=== PATIENT | female | born 1995 | race Hispanic/Latino ===

== ENCOUNTER 2018-07-30 18:40 | Emergency (ER) | payer BC ==
--- NOTE | 2018-07-30 19:24 | ER ---
Nurse's Notes [facility] Name: Alexandria Arita Age: 22 yrs Sex: Female : 1995 Arrival Date: 07/30/2018 Time: 18:43 Bed 27 Private MD: Unknown, Unknown Diagnosis: Chest pain on breathing Presentation: 07/30 18:45 Presenting complaint: Patient states: left upper chest wall pain has been going on for sv about 6 months, denies dizziness, SOB. Transition of care: patient was not received from another setting of care. Onset of symptoms was March 2018. Initial Sepsis Screen: Does the patient meet any 2 criteria? No. Patient's initial sepsis screen is negative. Does the patient have a suspected source of infection? No. Patient's initial sepsis screen is negative. Care prior to arrival: None. 18:45 Method Of Arrival: Ambulatory sv 18:45 Acuity: LEANDRA 2 sv 19:09 Risk Assessment: Do you want to hurt yourself or someone else? Patient reports no mg2 desire to harm self or others. Triage Assessment: 18:50 General: Appears in no apparent distress. comfortable, well developed, Behavior is sv calm, cooperative, appropriate for age. Pain: Complains of pain in anterior aspect of left upper chest Pain currently is 7 out of 10 on a pain scale. Pain began 6 months ago Is intermittent. Neuro: Level of Consciousness is awake, alert, obeys commands, Oriented to person, place, time, situation, Gait is steady. Cardiovascular: Patient's skin is warm and dry. Respiratory: Respiratory effort is even, unlabored, Respiratory pattern is regular, symmetrical. 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 - Social history:: Smoking status: Patient uses tobacco products, vapes, Patient uses alcohol, on a daily basis. "4 tall boys daily". Patient/guardian denies using street drugs, IV drugs, Patient/guardian denies using The patient lives alone. - Ebola Screening: : No symptoms or risks identified at this time. - Family history:: not pertinent. Screenin:07 Abuse screen: Denies threats or abuse. Denies injuries from another. Nutritional mg2 screening: No deficits noted. Tuberculosis screening: No symptoms or risk factors identified. Fall Risk None identified. Assessment: 19:07 General: Appears in no apparent distress. comfortable, Behavior is calm, cooperative. mg2 Pain: Complains of pain in chest Pain does not radiate. Pain currently is 3 out of 10 on a pain scale. Quality of pain is described as pressure, Pain began gradually, 6 months ago Is intermittent. Neuro: Level of Consciousness is awake, alert, obeys commands, Oriented to person, place, time, situation. Cardiovascular: Capillary refill < 3 seconds Patient's skin is warm and dry. Respiratory: Airway is patent Respiratory effort is even, unlabored, Respiratory pattern is regular, symmetrical. GI: No signs and/or symptoms were reported involving the gastrointestinal system. : No signs and/or symptoms were reported regarding the genitourinary system. EENT: No signs and/or symptoms were reported regarding the EENT system. Derm: Skin is intact, is healthy with good turgor, Skin is pink, warm \\T\\ dry. normal. Musculoskeletal: Circulation, motion, and sensation intact. Capillary refill < 3 seconds. Vital Signs: 18:50 BP 150 / 105; Pulse 101; Resp 20; Temp 98.3; Pulse Ox 100% ; Weight 71.67 kg; Height 5 sv ft. 2 in. (157.48 cm); Pain 7/10; 19:39 BP 140 / 78; Pulse 98; Resp 18; Temp 98.5(O); Pulse Ox 100% on R/A; Pain 0/10; mg2 18:50 Body Mass Index 28.90 (71.67 kg, 157.48 cm) sv ED Course: 18:43 Patient arrived in ED. ag5 18:44 Unknown, Unknown is Private Physician. ag5 18:47 Rodríguez Oliveira MD is Attending Physician. ma2 18:49 Triage completed. sv 18:50 Arm band placed on. sv 18:54 Oscar Sommers, MARCELO is Primary Nurse. mg2 19:08 Patient has correct armband on for positive identification. 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 Pulse mg2 ox on. NIBP on. Door closed. Warm blanket given. 19:08 No provider procedures requiring assistance completed. Patient maintains SpO2 mg2 saturation greater than 95% on room air. 19:40 Patient did not have IV access during this emergency room visit. mg2 Administered Medications: No medications were administered Outcome: 19:24 Discharge ordered by . christiano 19:40 Discharged to home ambulatory. mg2 19:40 Condition: stable 19:40 Discharge instructions given to patient, Instructed on discharge instructions, follow up and referral plans. medication usage, Demonstrated understanding of instructions, follow-up care, medications, Prescriptions given X 1. 19:40 Patient left the ED. mg2 Signatures: Nichelle Herman RN RN Rodríguez Valentin MD MD ny2 Oscar Sommers RN RN mg2 Vin Gotti ag5
--- NOTE | 2018-07-30 19:25 | EDPHYS ---
Physician Documentation [facility] Name: Alexandria Arita Age: 22 yrs Sex: Female : 1995 Arrival Date: 07/30/2018 Time: 18:43 Bed 27 Private MD: Unknown, Unknown ED Physician Rodríguez Oliveira HPI: 07/30 19:00 This 22 yrs old Female presents to ER via Ambulatory with complaints of Chest ma2 Pain. 19:00 The patient or guardian reports chest pain that is located primarily in the substernal ma2 area. Associated signs and symptoms: Pertinent negatives: abdominal pain, cough, headache. The chest pain is described as burning. Modifying factors: The symptoms are alleviated by nothing. the symptoms are aggravated by breathing. Severity of pain: At its worst the pain was mild in the emergency department the pain is unchanged. 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 - Social history:: Smoking status: Patient uses tobacco products, vapes, Patient uses alcohol, on a daily basis. "4 tall boys daily". Patient/guardian denies using street drugs, IV drugs, Patient/guardian denies using The patient lives alone. - Ebola Screening: : No symptoms or risks identified at this time. - Family history:: not pertinent. ROS: 19:00 Constitutional: Negative for fever, chills, and weight loss. ma2 19:00 Cardiovascular: Positive for chest pain, Negative for edema, palpitations, paroxysmal nocturnal dyspnea. 19:00 All other systems are negative. Exam: 19:00 Constitutional: This is a well developed, well nourished patient who is awake, alert, ma2 and in no acute distress. ENT: Nares patent. No nasal discharge, no septal abnormalities noted. Tympanic membranes are normal and external auditory canals are clear. Oropharynx with no redness, swelling, or masses, exudates, or evidence of obstruction, uvula midline. Mucous membranes moist. Chest/axilla: Normal chest wall appearance and motion. Nontender with no deformity. No lesions are appreciated. Cardiovascular: Regular rate and rhythm with a normal S1 and S2. No gallops, murmurs, or rubs. Normal PMI, no JVD. No pulse deficits. Respiratory: Lungs have equal breath sounds bilaterally, clear to auscultation and percussion. No rales, rhonchi or wheezes noted. No increased work of breathing, no retractions or nasal flaring. Abdomen/GI: Soft, non-tender, with normal bowel sounds. No distension or tympany. No guarding or rebound. No evidence of tenderness throughout. MS/ Extremity: Pulses equal, no cyanosis. Neurovascular intact. Full, normal range of motion. Neuro: Awake and alert, GCS 15, oriented to person, place, time, and situation. Cranial nerves II-XII grossly intact. Motor strength 5/5 in all extremities. Sensory grossly intact. Cerebellar exam normal. Normal gait. Vital Signs: 18:50 BP 150 / 105; Pulse 101; Resp 20; Temp 98.3; Pulse Ox 100% ; Weight 71.67 kg; Height 5 sv ft. 2 in. (157.48 cm); Pain 7/10; 19:39 BP 140 / 78; Pulse 98; Resp 18; Temp 98.5(O); Pulse Ox 100% on R/A; Pain 0/10; mg2 18:50 Body Mass Index 28.90 (71.67 kg, 157.48 cm) sv MDM: 18:47 Patient medically screened. ma2 19:00 Differential diagnosis: anxiety, chest wall pain, costochondritis, gastroesophageal ma2 reflux disease (GERD). 19:23 Data reviewed: vital signs, nurses notes. Test interpretation: by ED physician or ma2 midlevel provider: ECG, ecg is nsr w rate of 70 no ischemic changes, intervals wnl , none. Counseling: I had a detailed discussion with the patient and/or guardian regarding: the historical points, exam findings, and any diagnostic results supporting the discharge/admit diagnosis, the presence of at least one elevated blood pressure reading (>120/80) during this emergency department visit, the need for outpatient follow up. 07/30 18:48 Order name: EKG; Complete Time: 18:49 sv 07/30 18:47 Order name: EKG - Nurse/Tech; Complete Time: 19:05 ma2 Administered Medications: No medications were administered Disposition: 07/30/18 19:24 Discharged to Home. Impression: Chest pain on breathing. - Condition is Stable. - Discharge Instructions: Chest Wall Pain. - Prescriptions for Tylenol- Codeine #3 300-30 mg Oral Tablet - take 2 tablet by ORAL route every 6 hours As needed; 30 tablet. - Medication Reconciliation Form, Thank You Letter, Antibiotic Education, Prescription Opioid Use form. - Follow up: Private Physician; When: Tomorrow; Reason: Continuance of care. Signatures: Nichelle Herman RN RN Rodríguez Oliveira MD MD ma2 Oscar Sommers RN RN mg2 Corrections: (The following items were deleted from the chart) 19:40 19:24 07/30/2018 19:24 Discharged to Home. Impression: Chest pain on breathing. mg2 Condition is Stable. Forms are Medication Reconciliation Form, Thank You Letter, Antibiotic Education, Prescription Opioid Use. Follow up: Private Physician; When: Tomorrow; Reason: Continuance of care. ma2
--- NOTE | 2018-07-31 07:58 | EKG ---
Test Date: 2018-07-30 Test Time: 19:01:59 [employer]ging [employer] Executive: MG MEASUREMENT RESULTS: Intervals: Rate: 86 OH: 134 QRSD: 86 QT: 368 QTc: 440 [place]: P: 31 OH: 134 QRS: 46 T: 31 INTERPRETIVE STATEMENTS: Normal sinus rhythm Possible Lateral infarct, age undetermined Abnormal ECG No previous ECG available for comparison Electronically Signed On 07-31-18 07:57:00 CDT by Shashi Gooden
== END 2018-07-30 19:40 | disposition home or self-care (01) ==
LOC: ER 18:40
DX: R07.1 Chest pain on breathing (principal); Z72.0 Tobacco use; Z91.030 Bee allergy status
CPT/HCPCS: 93005; 99284

== ENCOUNTER 2018-10-23 20:33 | Emergency (ER) | payer BC ==
[2018-10-23] MEDS ORDERED: IBUPROFEN 400 MG TAB ONE (21:24)
[2018-10-23] MEDS ORDERED: AMOX/K CLAV 875 MG TAB ONE ×2 (21:25→21:30)
[2018-10-23] MEDS ORDERED: predniSONE 20 MG TAB ONE ×2 (21:25→21:30)
[2018-10-23] MEDS ORDERED: IBUPROFEN 200 MG TAB PO ONE ×2 (21:25→21:30)
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
--- NOTE | 2018-10-23 21:28 | EDPHYS ---
Physician Documentation [facility] Name: Alexandria Arita Age: 22 yrs Sex: Female : 1995 Arrival Date: 10/23/2018 Time: 20:35 Bed 2 Private MD: ED Physician Wade Camp HPI: 10/23 21:19 This 22 yrs old Female presents to ER via Ambulatory with complaints of Ear tonia Pain. 21:19 The patient presents with a fullness, hearing loss, pain, tenderness. The complaints tonia affect the left ear. Onset: The symptoms/episode began/occurred 2 day(s) ago. Modifying factors: The symptoms are alleviated by covering ear, the symptoms are aggravated by loud noise. Associated signs and symptoms: The patient has no apparent associated signs or symptoms. Severity of symptoms: At their worst the symptoms were mild moderate in the emergency department the symptoms are unchanged. The patient has not experienced similar symptoms in the past. 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 - Social history:: Smoking status: Patient uses tobacco products, vapes. - Ebola Screening: : No symptoms or risks identified at this time. - Family history:: not pertinent. ROS: 21:19 Constitutional: Negative for fever, chills, and weight loss, Eyes: Negative for injury, tonia pain, redness, and discharge, Neck: Negative for injury, pain, and swelling, Cardiovascular: Negative for chest pain, palpitations, and edema, Respiratory: Negative for shortness of breath, cough, wheezing, and pleuritic chest pain, Abdomen/GI: Negative for abdominal pain, nausea, vomiting, diarrhea, and constipation, Back: Negative for injury and pain, : Negative for injury, bleeding, discharge, and swelling, MS/Extremity: Negative for injury and deformity, Skin: Negative for injury, rash, and discoloration, Neuro: Negative for headache, weakness, numbness, tingling, and seizure. 21:19 ENT: Positive for ear pain. Exam: 21:19 Constitutional: This is a well developed, well nourished patient who is awake, alert, tonia and in no acute distress. Head/Face: Normocephalic, atraumatic. Eyes: Pupils equal round and reactive to light, extra-ocular motions intact. Lids and lashes normal. Conjunctiva and sclera are non-icteric and not injected. Cornea within normal limits. Periorbital areas with no swelling, redness, or edema. Neck: Trachea midline, no thyromegaly or masses palpated, and no cervical lymphadenopathy. Supple, full range of motion without nuchal rigidity, or vertebral point tenderness. No Meningismus. Chest/axilla: Normal chest wall appearance and motion. Nontender with no deformity. No lesions are appreciated. Cardiovascular: Regular rate and rhythm with a normal S1 and S2. No gallops, murmurs, or rubs. Normal PMI, no JVD. No pulse deficits. Respiratory: Lungs have equal breath sounds bilaterally, clear to auscultation and percussion. No rales, rhonchi or wheezes noted. No increased work of breathing, no retractions or nasal flaring. Abdomen/GI: Soft, non-tender, with normal bowel sounds. No distension or tympany. No guarding or rebound. No evidence of tenderness throughout. Back: No spinal tenderness. No costovertebral tenderness. Full range of motion. Skin: Warm, dry with normal turgor. Normal color with no rashes, no lesions, and no evidence of cellulitis. MS/ Extremity: Pulses equal, no cyanosis. Neurovascular intact. Full, normal range of motion. Neuro: Awake and alert, GCS 15, oriented to person, place, time, and situation. Cranial nerves II-XII grossly intact. Motor strength 5/5 in all extremities. Sensory grossly intact. Cerebellar exam normal. Normal gait. Psych: Awake, alert, with orientation to person, place and time. Behavior, mood, and affect are within normal limits. 21:19 ENT: TM's: bulging, dullness, erythema, that is mild, on the left. Vital Signs: 20:43 BP 134 / 77; Pulse 118; Resp 18; Temp 98.2; Pulse Ox 99% on R/A; Weight 72.57 kg (R); ak1 Height 5 ft. 2 in. (157.48 cm); Pain 0/10; 20:43 Body Mass Index 29.26 (72.57 kg, 157.48 cm) ak1 MDM: 21:13 Patient medically screened. [facility] 21:25 Data reviewed: vital signs, nurses notes. [facility] Administered Medications: 21:33 Drug: Augmentin 875 mg Route: PO; 21:49 Follow up: Response: No adverse reaction bb 21:33 Drug: predniSONE 60 mg Route: PO; 21:49 Follow up: Response: No adverse reaction 21:33 Drug: Motrin 600 mg Route: PO; 21:49 Follow up: Response: No adverse reaction Disposition: 10/23/18 21:27 Discharged to Home. Impression: Otitis media, unspecified, left ear. - Condition is Stable. - Discharge Instructions: Barotitis Media, Ear Barotrauma, Otitis Media, Adult, Otitis Media, Adult, [id number], Ear Barotrauma, [id number]. - Prescriptions for Sienna- D 12 Hour 60-120 mg Oral Tablet Sustained Release 12 hr - take 1 tablet by ORAL route every 12 hours As needed; 30 tablet. Ibuprofen 600 mg Oral Tablet - take 1 tablet by ORAL route every 8 hours As needed take with food; 21 tablet. Medrol (Rashard) 4 mg Oral Tablets, Dose Pack - take 1 tablet by ORAL route as directed - follow package instructions; 1 packet. Augmentin 875- 125 mg Oral Tablet - take 1 tablet by ORAL route every 12 hours for 10 days; 20 tablet. - Medication Reconciliation Form, Thank You Letter, Antibiotic Education, Prescription Opioid Use form. - Follow up: Private Physician; When: 2 - 3 days; Reason: Recheck today's complaints, Continuance of care, Re-evaluation by your physician. Follow up: Nichelle Manning MD; When: 2 - 3 days; Reason: Recheck today's complaints, Re-evaluation by your physician. - Problem is new. - Symptoms have improved. Signatures: Wade Camp MD MD cha Ballard, Brenda, RN RN bb Karen Durham, RN RN ak1 Corrections: (The following items were deleted from the chart) 21:50 21:27 10/23/2018 21:27 Discharged to Home. Impression: Otitis media, unspecified, left bb ear. Condition is Stable. Forms are Medication Reconciliation Form, Thank You Letter, Antibiotic Education, Prescription Opioid Use. Follow up: Private Physician; When: 2 - 3 days; Reason: Recheck today's complaints, Continuance of care, Re-evaluation by your physician. Follow up: Nichelle Manning; When: 2 - 3 days; Reason: Recheck today's complaints, Re-evaluation by your physician. Problem is new. Symptoms have improved. tonia
== END 2018-10-23 21:50 | disposition home or self-care (01) ==
LOC: ER 20:33
DX: H66.92 Otitis media, unspecified, left ear (principal); F17.290 Nicotine dependence, other tobacco product, uncomplicated; Z91.018 Allergy to other foods; Z91.030 Bee allergy status
CPT/HCPCS: J7512

== ENCOUNTER 2022-08-11 02:52 | Emergency (ER) | payer BC, SELFPAY ==
--- OUTSIDE RECORDS SUMMARY | 2022-08-11 03:15 | XMS REPORT | Continuity of Care Document ---
:1995 Author Organization [facility] t Address [address] [place] [address] [address] [place] [address] Care Team Providers Name Role Phone PCP, PATIENT DOES NOT HAVE A Primary Care Physician Unavaila ble YONATHAN VALENTINE Attending Clinician Unavailable Problems This patient has no known problems. Allergies, Adverse Reactions, Alerts Allergy Allergy Status Severity Reaction(s) Onset Inactive Treating Comm ents Source Name Type Date Date Clinician NO KNOWN Drug Active [facility] Medications This patient has no known medications. Procedures This patient has no known procedures. Encounters Start End Encounter Admission Attending Care Care Encounter Source Date/Time Date/Time Type Type Clinicians Facility Department ID 2021-09-04 2021-09-04 Emergency X JARETT VALENTINE ERT [id number] 25 [facility] 02:50:00 03:01:00 YONATHAN [facility] Results This patient has no known results.
[2022-08-11] MEDS ORDERED: METOCLOPRAMIDE 10 MG/2mL INJ ONE (04:03)
[2022-08-11] MEDS ORDERED: NA CHLORIDE 0.9% 1,000 ML ONE (04:03)
[2022-08-11] MEDS ORDERED: KETOROLAC 30 MG/ML INJ ONE (04:03)
[2022-08-11 04:25] LABS: Hematocrit 39.7 % (36.0-45.0); Lymphocytes % 39.5 % (15.3-44.8); MCV 89.1 fL (80-100); RBC Red Blood Cell Count 4.45 M/uL (3.86-4.86)
[2022-08-11 04:31] LABS: Urine Bilirubin NEGATIVE (Negative); Urine Blood Negative (Negative); Urine Clarity Clear (Clear); Urine Color Light-Yellow (Yellow); Urine Glucose NEGATIVE (Negative); Urine Protein NEGATIVE (Negative); Urine Urobilinogen Normal (Normal)
[2022-08-11 04:38] LABS: Albumin 3.8 g/dL (3.4-5.0); Bilirubin Total 0.2 mg/dL (0.2-1.0); Protein, Total 8.2 g/dL (6.4-8.2)
--- NOTE | 2022-08-11 06:01 | EDPHYS ---
Physician Documentation [facility] Name: Alexandria Arita Age: 26 yrs Sex: Female : 1995 Arrival Date: 08/11/2022 Time: 02:52 Bed 8 Private MD: ED Physician Jose Martin Garzon HPI: 08/11 05:51 This 26 yrs old Female presents to ER via Ambulatory with complaints of Flank sp4 Pain. 05:51 26-year-old female presents with a a right upper back pain acute onset.. sp4 05:52 Patient states pain started acutely yesterday morning and she had trouble walking today sp4 secondary to pain in the back. Patient denied any vomiting, reported nausea but denied any other symptoms. Pain is constant, moderate in intensity. Historical: - Allergies: 03:07 Bees; aa9 03:07 soy beans; aa9 03:10 Peanut Butter Flavor; aa9 - Home Meds: 03:07 None [Active]; aa9 - PMHx: 03:07 None; aa9 - PSHx: 03:07 None; aa9 - Immunization history:: Client reports receiving the 2nd dose of the Covid vaccine. - Social history:: Smoking status: Reported history of juuling and/or vaping. - Family history:: not pertinent. ROS: 05:52 Constitutional: Negative for fever, chills, and weight loss, Eyes: Negative for injury, sp4 pain, redness, and discharge, ENT: Negative for injury, pain, and discharge, Neck: Negative for injury, pain, and swelling, Cardiovascular: Negative for chest pain, palpitations, and edema, Respiratory: Negative for shortness of breath, cough, wheezing, and pleuritic chest pain, Abdomen/GI: Negative for abdominal pain, nausea, vomiting, diarrhea, and constipation, positive for right flank pain Back: Negative for injury, positive for the right back and flank pain : Negative for injury, bleeding, discharge, and swelling, MS/Extremity: Negative for injury and deformity, Skin: Negative for injury, rash, and discoloration, Neuro: Negative for headache, weakness, numbness, tingling, and seizure, Psych: Negative for depression, anxiety, Allergy/Immunology: Negative for hives, rash, and allergies Endocrine: Negative for neck swelling, polydipsia, polyuria, polyphagia, and weight changes Hematologic/Lymphatic: Negative for swollen nodes, abnormal bleeding, and unusual bruising Exam: 05:52 Constitutional: This is a well developed, well nourished patient who is awake, alert, sp4 and in no acute distress. Head/Face: Normocephalic, atraumatic. Eyes: Pupils equal round and reactive to light, extra-ocular motions intact. Lids and lashes normal. Conjunctiva and sclera are not injected. Cornea within normal limits. Periorbital areas with no swelling, redness, or edema. ENT: Nares patent. No nasal discharge, no septal abnormalities noted. Tympanic membranes are normal and external auditory canals are clear. Oropharynx with no redness, swelling, or masses, exudates, or evidence of obstruction, uvula midline. Mucous membranes moist. Neck: Trachea midline, no thyromegaly or masses palpated, and no cervical lymphadenopathy. Supple, full range of motion without nuchal rigidity, or vertebral point tenderness. Chest/axilla: Normal chest wall appearance and motion. Nontender with no deformity. No lesions are appreciated. Cardiovascular: Regular rate and rhythm with a normal S1 and S2. No gallops, murmurs, or rubs. Normal PMI, no JVD. No pulse deficits. Respiratory: Lungs have equal breath sounds bilaterally, clear to auscultation and percussion. No rales, rhonchi or wheezes noted. No increased work of breathing, no retractions or nasal flaring. Abdomen/GI: Soft, non-tender, with normal bowel sounds. No distension or tympany. No guarding or rebound. No evidence of tenderness throughout. Back: No spinal tenderness. No costovertebral tenderness. Skin: Warm, dry with normal turgor. Normal color with no rashes, no lesions, and no evidence of cellulitis. MS/ Extremity: Pulses equal, no cyanosis. Neurovascular intact. Full, normal range of motion. Neuro: Awake and alert, GCS 15, oriented to person, place, time, and situation. Cranial nerves II-XII grossly intact. Motor strength 5/5 in all extremities. Sensory grossly intact. Psych: Awake, alert, with orientation to person, place and time. Behavior, mood, and affect are within normal limits Vital Signs: 03:06 BP 147 / 89; Pulse 92; Resp 16; Temp 98.3; Pulse Ox 99% ; Weight 90.72 kg; Height 5 ft. aa9 2 in. ; Pain 8/10; 04:10 BP 120 / 52; Pulse 90; Resp 16 S; Pulse Ox 100% ; aa9 03:06 Body Mass Index 36.58 (90.72 kg, 157.48 cm) aa9 03:06 Pain Scale: Adult aa9 MDM: 03:42 Patient medically screened. sp4 05:50 ED course: IMPRESSION: 1. Diffuse bladder wall thickening, could be secondary to sp4 underdistention. Correlate with urinalysis for evidence of cystitis. 2. No evidence of acute appendicitis. 3. 2.2 cm simple appearing right adnexal cyst. No follow-up imaging is recommended. . 05:52 Differential diagnosis: nephrolithiasis, pyelonephritis, UTI, diverticulitis, sp4 pancreatitis. Data reviewed: vital signs, nurses notes, old medical records, lab test result(s), CBC, electrolytes, hepatic panel, urinalysis, radiologic studies, CT scan. Consideration of Admission/Observation Escalation of care including admission/observation considered. ED course: CT abdomen pelvis reveals incidental finding of right adnexal cyst, there is diffuse bladder wall thickening could be secondary to underdistention. No evidence for acute appendicitis. Right and left kidneys are normal. Labs are unremarkable. Including CBC CMP test negative, UA is normal. 08/11 03:42 Order name: CBC with Diff; Complete Time: 05:01 sp4 08/11 03:42 Order name: CMP; Complete Time: 05:01 sp4 08/11 03:42 Order name: Lipase; Complete Time: 05:01 sp4 08/11 03:42 Order name: Test, Urine; Complete Time: 05:01 sp4 08/11 03:42 Order name: Urinalysis w/ reflexes; Complete Time: 05:01 sp4 08/11 03:46 Order name: CT Abd/Pelvis - IV Contrast Only sp4 08/11 03:42 Order name: IV Saline Lock; Complete Time: 04:09 sp4 08/11 03:42 Order name: Labs collected and sent; Complete Time: 04:10 sp4 Administered Medications: 04:00 Drug: metoCLOPramide IVP 10 mg Route: IVP; Site: left antecubital; aa9 05:36 Follow up: Response: No adverse reaction aa9 04:05 Drug: Ketorolac IVP 30 mg Route: IVP; Site: left antecubital; aa9 05:36 Follow up: Response: No adverse reaction; Pain is decreased aa9 04:09 Drug: NS 0.9% IV 1000 ml Route: IV; Rate: 1 bolus; Site: left antecubital; aa9 05:35 Follow up: Response: No adverse reaction; IV Status: Completed infusion; IV Intake: aa9 1000ml 06:29 Drug: Methocarbamol PO 1500 mg Route: PO; 9 06:29 Not Given (Other Intervention Used): Naproxen PO 500 mg PO once aa9 Disposition Summary: 08/11/22 06:00 Discharge Ordered Location: Home sp4 Problem: new sp4 Symptoms: have improved sp4 Condition: Stable sp4 Diagnosis - Low back pain sp4 - Sprain of ligaments of lumbar spine sp4 Followup: sp4 - With: Private Physician - When: As needed - Reason: Recheck today's complaints Discharge Instructions: - Discharge Summary Sheet sp4 - Acute Back Pain, Adult sp4 Forms: - Work release form aa9 Prescriptions: - naproxen 500 mg Oral tablet - take 1 tablet by ORAL route every 12 hours PRN pain; 30 tablet; Refills: 0, sp4 Product Selection Permitted - methocarbamol 750 mg Oral Tablet - take 2 tablets by ORAL route 4 times per day for 3 days PRN muscle soreness; 60 sp4 tablet; Refills: 0, Product Selection Permitted Signatures: Dispatcher [employer] Yumiko Thomas RN RN aa9 Jose Martin Garzon MD MD sp4
--- NOTE | 2022-08-11 06:01 | ER ---
Nurse's Notes [facility] Name: Alexandria Arita Age: 26 yrs Sex: Female : 1995 Arrival Date: 08/11/2022 Time: 02:52 Bed 8 Private MD: Diagnosis: Low back pain;Sprain of ligaments of lumbar spine Presentation: 08/11 03:06 Chief complaint: Patient states: Right sided back pain since this graham ng, I don't have aa9 N/V/D. Coronavirus screen: Vaccine status: Patient reports receiving the 2nd dose of the covid vaccine. Ebola Screen: No symptoms or risks identified at this time. Initial Sepsis Screen: Does the patient meet any 2 criteria? No. Patient's initial sepsis screen is negative. Does the patient have a suspected source of infection? No. Patient's initial sepsis screen is negative. Risk Assessment: Do you want to hurt yourself or someone else? Patient reports no desire to harm self or others. Onset of symptoms was August 11, 2022. 03:06 Method Of Arrival: Ambulatory aa9 03:06 Acuity: LEANDAR 3 aa9 Triage Assessment: 03:07 General: Appears uncomfortable, obese, Behavior is cooperative, anxious. Pain: aa9 Complains of pain in right mid back and right low back Pain currently is 8 out of 10 on a pain scale. Quality of pain is described as crampy, Noted to be grimacing, moaning, resistant to movement. Neuro: Level of Consciousness is awake, alert, obeys commands, Oriented to person, place, time, situation. Cardiovascular: Patient's skin is warm and dry. Respiratory: Airway is patent Respiratory effort is even, unlabored. GI: Patient currently denies diarrhea, nausea, vomiting. : No signs and/or symptoms were reported regarding the genitourinary system. Derm: Skin is intact, is healthy with good turgor. Historical: - Allergies: 03:07 Bees; aa9 03:07 soy beans; aa9 03:10 Peanut Butter Flavor; aa9 - Home Meds: 03:07 None [Active]; aa9 - PMHx: 03:07 None; aa9 - PSHx: 03:07 None; aa9 - Immunization history:: Client reports receiving the 2nd dose of the Covid vaccine. - Social history:: Smoking status: Reported history of juuling and/or vaping. - Family history:: not pertinent. Screenin:10 Abuse screen: Denies threats or abuse. Denies injuries from another. Nutritional aa9 screening: No deficits noted. Tuberculosis screening: No symptoms or risk factors identified. Assessment: 04:00 General: Appears uncomfortable, obese, Behavior is cooperative, anxious. Pain: aa9 Complains of pain in right mid back and right low back Pain currently is 9 out of 10 on a pain scale. Quality of pain is described as crampy, Pain began 1 day ago. Is intermittent, Noted to be crying, moaning, resistant to movement. 04:00 Neuro: Level of Consciousness is awake, alert, obeys commands, Oriented to person, aa9 place, time, situation. Respiratory: Airway is patent Respiratory effort is even, unlabored. : No signs and/or symptoms were reported regarding the genitourinary system. 05:36 Reassessment: Patient appears in no apparent distress at this time. Patient and/or aa9 family updated on plan of care and expected duration. Pain level reassessed. Patient is alert, oriented x 3, equal unlabored respirations, skin warm/dry/pink. Patient states feeling better. 06:31 Reassessment: Patient appears in no apparent distress at this time. Patient and/or aa9 family updated on plan of care and expected duration. Pain level reassessed. Patient is alert, oriented x 3, equal unlabored respirations, skin warm/dry/pink. Patient states symptoms have improved. Vital Signs: 03:06 BP 147 / 89; Pulse 92; Resp 16; Temp 98.3; Pulse Ox 99% ; Weight 90.72 kg; Height 5 ft. aa9 2 in. ; Pain 8/10; 04:10 BP 120 / 52; Pulse 90; Resp 16 S; Pulse Ox 100% ; aa9 03:06 Body Mass Index 36.58 (90.72 kg, 157.48 cm) aa9 03:06 Pain Scale: Adult aa9 ED Course: 02:57 Patient arrived in ED. ja2 03:00 Yumiko Hale, RN is Primary Nurse. aa9 03:07 Triage completed. aa9 03:08 Arm band placed on. aa9 03:09 Patient has correct armband on for positive identification. Bed in low position. Call aa9 light in reach. Side rails up X 1. Adult w/ patient. Pulse ox on. NIBP on. 03:41 Jose Martin Garzon MD is Attending Physician. sp4 04:00 Inserted saline lock: 20 gauge in left antecubital area, using aseptic technique. Blood aa9 collected. 04:09 CBC with Diff Sent. aa9 04:09 Lipase Sent. aa9 04:09 CMP Sent. aa9 05:13 CT Abd/Pelvis - IV Contrast Only In Process Unspecified. EDMS 06:30 No provider procedures requiring assistance completed. IV discontinued, intact, aa9 bleeding controlled, No redness/swelling at site. Pressure dressing applied. Administered Medications: 04:00 Drug: metoCLOPramide IVP 10 mg Route: IVP; Site: left antecubital; aa9 05:36 Follow up: Response: No adverse reaction aa9 04:05 Drug: Ketorolac IVP 30 mg Route: IVP; Site: left antecubital; aa9 05:36 Follow up: Response: No adverse reaction; Pain is decreased aa9 04:09 Drug: NS 0.9% IV 1000 ml Route: IV; Rate: 1 bolus; Site: left antecubital; aa9 05:35 Follow up: Response: No adverse reaction; IV Status: Completed infusion; IV Intake: aa9 1000ml 06:29 Drug: Methocarbamol PO 1500 mg Route: PO; aa9 06:29 Not Given (Other Intervention Used): Naproxen PO 500 mg PO once aa9 Medication: 06:30 VIS not applicable for this client. aa9 Intake: 05:35 IV: 1000ml; Total: 1000ml. aa9 Outcome: 06:00 Discharge ordered by . sp4 06:30 Discharged to home ambulatory. aa9 06:30 Condition: stable 06:30 Discharge instructions given to patient, Instructed on discharge instructions, follow up and referral plans. medication usage, Demonstrated understanding of instructions, follow-up care, medications, Prescriptions given X 2. 06:32 Patient left the ED. aa9 Signatures: Dispatcher [employer] EDMS Prachi Shell Aylin, RN RN aa9 Jose Martin Garzon MD MD sp4
[2022-08-11] MEDS ORDERED: methocarbamoL 500 MG TAB ONE (06:18)
[2022-08-11 06:37] VITALS: TEMP 98.3
[2022-08-11 06:38] VITALS: BP 120/52; O2SAT 100
--- NOTE | 2022-08-11 13:59 | RAD REPORT ---
EXAM DESCRIPTION: CT - Abdomen Pelvis W Contrast - 08/11/2022 6:14 am CLINICAL HISTORY: 26 years Female RIGHT FLANK PAIN COMPARISON: None TECHNIQUE: CT of the abdomen and pelvis with intravenous contrast. All CT scans at this facility use dose modulation, iterative reconstruction, and/or weight based dosi ng when appropriate to reduce radiation dose to as low as reasonably achievable. FINDINGS: Lower thorax: Lung bases are clear Abdomen: Stomach: Within normal limits Liver: No focal lesions. No intrahepatic ductal distention. Gallbladder: Nondistended Pancreas: Within normal limits Spleen: Within normal limits Right kidney: No hydronephrosis. No focal lesion. Left kidney: No hydronephrosis. No focal lesion. Adrenal glands: Within normal limits Vascular structures: Within normal limits Nodes: No lymphadenopathy by size criteria Pelvis: Small bowel: No significant distention. Appendix: Within normal limits Colon: No distention or acute pericolonic edema. Peritoneum: No free intraperitoneal fluid or air. Bones: No acute bone findings. Bladder: Diffuse wall thickening, could be secondary to underdistention. Reproductive organs: No acute findings. 2.2 cm simple appearing right adnexal cyst. IMPRESSION: 1. Diffuse bladder wall thickening, could be secondary to underdistention. Correlate w ith urinalysis for evidence of cystitis. 2. No evidence of acute appendicitis. 3. 2.2 cm simple appearing right adnexal cyst. No follow-up imaging is recommended. Electronically signed by: Kena Hassan MD 08/11/2022 5:31 AM CDT Due to temporary technical issues with the PACS/Fluency reporting system, reports are being signed by the in house radiologists without review as a courtesy to insure prompt reporting. The interpreting radiologist is fully responsible for the content of the report.
== END 2022-08-11 06:32 | disposition home or self-care (01) ==
LOC: ER 02:52
DX: S33.5XXA Sprain of ligaments of lumbar spine, initial encounter (principal)
CPT/HCPCS: 36415; 74177; 80053; 81003; 81025; 83690; 85025; 96361; 96374; 96375; 99284; J2765; J7030; Q9967